=== PATIENT | male | born 1985 | race Caucasian/White ===

== ENCOUNTER 2017-02-18 17:18 | Emergency (ER) | payer BC ==
[2017-02-18 18:31] VITALS: RESP 16
[2017-02-18] MEDS ORDERED: DEXAMETHASONE 4 MG TAB PO ONE (19:12)
--- NOTE | 2017-02-18 19:17 | EDPHY ---
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 Source: Patient Exam Limitations: No limitations - Personal History Current Tetanus/Diphtheria Vaccine: Unsure Current Tetanus Diphtheria and Acellular Pertussis (TDAP): Unsure - Medical/Surgical History Hx Asthma: No Hx Chronic Respiratory Disease: No Hx Diabetes: No Hx Cardiac Disease: No Hx Renal Disease: No Hx Cirrhosis: No Hx Alcoholism: No Hx HIV/AIDS: No Hx Splenectomy or Spleen Trauma: No Other PMH: depression - Social History Smoking Status: Never smoked HPI/ROS: CHIEF COMPLAINT: Neck pain, arm pain, arm tingling HISTORY OF PRESENT ILLNESS: Patient was doing pull-ups this evening shortly prior to arrival. He said while doing a pull up he felt a sudden onset of pain in the right trapezius on the right side of the neck. This was sudden onset. Moderate to severe. Radiates down the arm. Worsens at the elbow. There is some tingling throughout the arm, more pronounced past the elbow. No chest pain. No shortness of breath. No headache. No anterior neck pain. No weakness anywhere. No saddle anesthesia. No incontinence of bowel or bladder. No direct blows or trauma to the neck. No other associated complaints or modifying factors. REVIEW OF SYSTEMS: Ten systems reviewed and are negative unless otherwise noted in the HPI EXAMINATION General Appearance: Alert, no distress Cardiovascular: Pulses normal throughout. Symmetric radial pulses 2+. Brisk cap refill Neck: Neurological: GCS 15. A&O. Strength is 5/5 in the left elbow, wrist and hand. Strength is 4/5 in the right hand and wrist. Strength is 4/5 in the right interossei. Strength is 5/5 in the right elbow and shoulder. Sensory is intact in the median distributions symmetrically. There is reported decreased sensation of the right radial distribution over the back of the hand. Patellar reflexes are symmetric at 2+ Skin: Warm and dry, no rash. No lacerations abrasions or contusions. Extremities: No tenderness to palpation of any extremities. Range of motion is symmetric in the shoulders, elbows, wrist, fingers including interossei. Psychiatric: Mood and affect normal DIFFERENTIAL DIAGNOSES: Including but not limited to cervical radiculopathy, cervical fracture, disc rupture, disc bulge, brachial plexus injury, paresthesia, neuropathy, neuronitis MDM: 7:13 p.m. Sudden onset of pain in the right trapezius that does present with cervical radiculopathy. There is very mild weakness on the right upper extremity distal to the elbow. Sensory is reportedly decreased in the same region. I have ordered MRI of the neck to rule out acute cord injury or acute compression of the lateral nerve root. He is in no acute distress. 9:05 p.m. Contacted by radiologist Dr. Dominguez. MRI of the cervical spine reveals a lateral disc herniation versus prominent bulge at C5-C6. This does correlate clinically with the patient's history and examination. I discussed the findings with the patient and I have paged Neurosurgery to discuss. 9:20 p.m. I discussed the case with Neurosurgery Dr. Ellis. Her recommendations are Medrol Dosepak, pain medication as needed. She would like the patient to contact her office Tuesday to be seen next Tuesday through Tuesday. Patient is comfortable with this plan. We discussed discharge home. We discussed return to the emergency department for changes in pain, weakness, numbness or tingling. He is comfortable with this plan and discharged home with adherence to Dr. Ellis recommendations. ED Precautions: Worsening pain. Erythema, edema, cyanosis, pallor, paresthesia or anesthesia. SUPERVISION: Case discussed with Dr. Hutton Phone consultation with Dr. Ellis ([facility]) Constitutional: Initial Vital Signs Temperature (C) 36.7 C 02/18/17 18:28 Heart Rate 76 02/18/17 18:28 Respiratory Rate 16 02/18/17 18:28 Blood Pressure 128/76 H 02/18/17 18:28 O2 Sat (%) 98 02/18/17 18:28 O2 Delivery Mode Room Air Allergies/Adverse Reactions: No Known Allergies Allergy (Unverified 02/18/17 18:28) Home Medications: Medication Instructions Recorded Gabapentin 02/18/17 Wellbutrin Sr 02/18/17 methylPREDNISolone [Medrol Dose 1 each PO AD #0 ea 02/18/17 Seth] oxyCODONE HCL/ACETAMINOPHEN 1 each PO Q4-6PRN PRN #20 tablet 02/18/17 [Percocet 5-325 mg Tablet] Medical Decision Making ED Course/Re-evaluation: I did not see this patient while he was in the emergency department. However his care was discussed with the PA while the patient was in the department. I agree with treatment plan and management (Melquiades Hutton) - Data Points Medications Given: Discontinued Medications Dexamethasone (Decadron) 8 mg PO EDNOW ONE Stop: 02/18/17 19:13 Last Admin: 02/18/17 19:18 Dose: 8 mg Oxycodone/Acetaminophen (Percocet 5/325mg Prepack#4) 1 btl TAKEHOME EDNOW ONE Stop: 02/18/17 21:17 Last Admin: 02/18/17 21:34 Dose: 1 btl Departure - Departure Disposition: Home, Routine, Self-Care Clinical Impression: Herniation of intervertebral disc at C5-C6 level, Cervical radiculopathy at C6 Condition: Good Instructions: Oxycodone/Acetaminophen (By mouth), Cervical Disc Herniation (ED) , Cervical Radiculopathy (ED), Acute Neck Pain (ED) Additional Instructions: 1. Medrol Dosepak as prescribed starting on Tuesday 2. Light activity 3. Contact Neurosurgery on Tuesday for definitive care 4. Return here for worsening pain, weakness, numbness or tingling Referrals: NONE *PRIMARY CARE P,. [Primary Care Provider] - As per Instructions Shellie Ellis DO [Doctor of Osteopathy] - As per Instructions Prescriptions: methylPREDNISolone [Medrol Dose Seth] 1 each PO AD #0 ea oxyCODONE HCL/ACETAMINOPHEN [Percocet 5-325 mg Tablet] 1 each PO Q4-6PRN PRN # 20 tablet PRN Reason: Pain, Breakthrough
[2017-02-18] MEDS ORDERED: IBUPROFEN 600 MG TAB PO ONE (21:08)
[2017-02-18] MEDS ORDERED: OXYCODONE/APAP 5/325MG PREPACK#4 BTL TAKEHOME ONE (21:16)
[2017-02-18 21:33] VITALS: BP 128/78; PULSE 78; TEMP 98.4; O2SAT 96
== END 2017-02-18 21:32 | disposition home or self-care (01) ==
DX: M54.12 Radiculopathy, cervical region (principal); M50.20 Other cervical disc displacement, unspecified cervical region